=== PATIENT | female | born 1960 ===

== ENCOUNTER → 2018-02-21 | Emergency (ER) | payer OTHER ==
[~2018-02-21] VITALS: Ht 162.6 cm; Wt 71.7 kg
[~2018-02-21] MED LIST: COLD & FLU REL180 ML; OMEGA-3100 MG; ROBITUSSIN7.5 MG/51
== END | disposition home or self-care (01) ==
LOC: ER 19:45
DX: J06.9 Acute upper respiratory infection, unspecified (principal)